=== PATIENT | female | born 1985 | race Caucasian/White ===

== ENCOUNTER → 2020-10-17 09:19 | Outpatient (CLI) | payer OTHER, MEDICAID, SELFPAY ==
--- NOTE | 2020-10-17 09:22 | DI.MG.S_ITS ---
BILATERAL DIGITAL DIAGNOSTIC MAMMOGRAM 3D/2D: 10/17/2020 CLINICAL: Baseline, Palpable left breast lump. No prior exams were available for comparison. The tissue of both breasts is heterogeneously dense. This may lower the sensitivity of mammography. No significant masses, calcifications, or other findings are seen in either breast. IMPRESSION: INCOMPLETE: NEEDS ADDITIONAL IMAGING EVALUATION There is no abnormality seen in the left breast to correspond with the palpable abnormality, however, ultrasound is recommended. This exam was interpreted at Station ID: [id number]. NOTE: For mammograms, a report in lay terms will be sent to the patient. Approximately 15% of breast malignancies will not be visualized mammographically. In the management of a palpable breast mass, a negative mammogram must not discourage biopsy of a clinically suspicious lesion. Electronically Signed By: Song pathak/tate:10/17/2020 10:49:32 ACR BI-RADS Category 0: Incomplete [id number]
--- NOTE | 2020-10-17 09:23 | DI.US.S_ITS ---
LIMITED ULTRASOUND OF LEFT BREAST: 10/17/2020 CLINICAL: Palpable left breast lump. Comparison is made to exam dated: 10/17/2020 [facility]. Real-time ultrasound of the left breast was performed. Brenner scale images of the real-time examination were reviewed. Dense fibroglandular tissue but no mass is identifed in the patient-indicated palpable area of concern. IMPRESSION: NEGATIVE Dense fibroglandular tissue but no mass is identifed in the patient-indicated palpable area of concern. Recommend clinical follow up. There is no sonographic evidence of malignancy. A 4 year screening mammogram is recommended. This exam was interpreted at Station ID: [id number]. Electronically Signed By: Song pathak/tate:10/17/2020 10:50:41 letter sent: Clinical Evaluation Ultrasound BI-RADS: 1 Negative
== END ==
PROVIDERS: PCP Nurse Practitioner Family; Referring Provider Nurse Practitioner Family; Visit Provider Nurse Practitioner Family
DX: N63.20 Unspecified lump in the left breast, unspecified quadrant (principal); R92.2 Inconclusive mammogram
CPT/HCPCS: 76642; 77066; G0279

== ENCOUNTER → 2021-03-12 14:50 | Outpatient (CLI) | payer OTHER, MEDICAID, SELFPAY ==
--- NOTE | 2021-03-12 14:51 | DI.CT.S_ITS ---
PROCEDURE: CT ABDOMEN PELVIS WO/W CON INDICATIONS: Sepsis/right flank pain/positive blood culture TECHNIQUE: Optional 5 mm thick noncontrast images acquired from the diaphragm to the symphysis pubis. After the administration of intravenous contrast, 5 mm thick images acquired from the diaphragm to the symphysis pubis after a 10-minute delay. 2 mm thick coronal and sagittal reformats were then performed of the kidneys and ureters. For radiation dose reduction, the following was used: automated exposure control, adjustment of mA and/or kV according to patient size. COMPARISON: None. FINDINGS: Image quality: Excellent. Lung bases: Lung bases are clear. Heart size is normal. Urinary system: Both kidneys are normal in size, without hydronephrosis or nephrolithiasis on pre-contrast images. No perinephric fat stranding. There is normal bilateral renal enhancement. Renal calyces appear normal in morphology when filled with contrast. Opacified portions of both ureters demonstrate normal caliber. Bladder wall thickness is normal. No calcified bladder stones. Other solid organs: Liver is normal in size and enhancement. Gallbladder is normal. Biliary system is non dilated. Pancreas enhances normally. Spleen is normal in size and enhancement. No adrenal nodules. Peritoneum and bowel: Mild gastric antral thickening. Bowel loops demonstrate normal wall thickness and caliber. Fluid-filled small intestine and without wall thickening. No free fluid or air. Nodes and vessels: No retroperitoneal or mesenteric adenopathy by size criteria. Aorta and inferior vena cava are normal in size. Abdominal wall: No ventral hernias. Pelvis: Uterus and ovaries are normal. No pathologic free pelvic fluid. No inguinal hernias or adenopathy. Bones: No suspicious bony lesions. No vertebral body compression fractures. IMPRESSION: 1. Normal size and enhancement of kidneys bilaterally. No CT findings to suggest pyelonephritis, which does not exclude clinical urinary tract infection. 2. Mild gastric antral thickening. Fluid filled small intestine. This findings are nonspecific and could be secondary to gastroenteritis. Recommend clinical correlation. Dictated by: Mirella Ramires M.D. on 03/12/2021 at 17:12 Approved by: Mirella Ramires M.D. on 03/12/2021 at 17:17
== END ==
PROVIDERS: PCP Nurse Practitioner Family; Referring Provider Urology; Visit Provider Urology
DX: A41.9 Sepsis, unspecified organism (principal); R10.9 Unspecified abdominal pain
CPT/HCPCS: 74178; Q9957; Q9967

== ENCOUNTER → 2021-07-24 08:45 | Outpatient (CLI) | payer OTHER, MEDICAID, SELFPAY ==
--- NOTE | 2021-07-24 08:46 | DI.US.S_ITS ---
PROCEDURE: US RENAL COMPLETE INDICATIONS: History of right hydronephrosis/right flank pain TECHNIQUE: Real-time scanning was performed of the kidneys and bladder, with image documentation. COMPARISON: None. FINDINGS: Kidneys: Kidneys are normal in size. Right kidney measures 10.6 cm long; left kidney measures 10.0 cm long. Right renal cortical thickness is 1.3 cm; left renal cortical thickness is 2.0 cm. Renal cortical echotexture is normal. No hydronephrosis or nephrolithiasis. No suspicious solid mass lesions. Bladder: Pre-void bladder volume is 106 mL. Post-void residual is 7 mL. Pre-void images demonstrate no intraluminal masses or stones. On pre-void images, both the right and left ureteral jets are noted with color Doppler interrogation. (Of note, ureteral jets may not be detectable in up to 25% of cases due to insufficient differences in specific gravity between ureteral and bladder urine). Miscellaneous: No free pelvic fluid. IMPRESSION: Normal renal sonogram. No hydronephrosis. Dictated by: Mary Donovan MD, PhD on 07/25/2021 at 10:21 Approved by: Mary Donovan MD, PhD on 07/25/2021 at 12:20
== END ==
PROVIDERS: PCP Nurse Practitioner Family; Referring Provider Urology; Visit Provider Urology
DX: R10.9 Unspecified abdominal pain (principal); N13.30 Unspecified hydronephrosis
CPT/HCPCS: 76770

== ENCOUNTER → 2023-02-12 11:24 | Outpatient (CLI) | payer OTHER, SELFPAY ==
[2023-02-13 14:53] LABS: Candida species Positive (Negative); Gardnerella vaginalis Positive (Negative); Trichomoas vaginalis Negative (Negative)
== END ==
PROVIDERS: Visit Provider Physician Assistant Medical
DX: N89.8 Other specified noninflammatory disorders of vagina (principal)
CPT/HCPCS: 87480; 87510; 87660

== ENCOUNTER → 2023-06-10 16:12 | Outpatient (CLI) | payer OTHER, SELFPAY | PROVIDERS: Visit Provider Specialist | DX: Z87.440 Personal history of urinary (tract) infections (principal); R31.9 Hematuria, unspecified | CPT/HCPCS: 87086 ==